=== PATIENT | female | born 1955 | race Asian ===

== ENCOUNTER 2017-04-27 10:59 | Emergency (ER) | payer MEDICAID, OTHER ==
[~2017-04-27] VITALS: Ht 160 cm; Wt 77.3 kg
[~2017-04-27 10:59] MED LIST: ATEN50TA PO; HYDR25TA PO
[2017-04-27] MEDS ORDERED: GUAI5SYR4 PO (11:07)
[2017-04-27 11:50] VITALS: BP 148/88
[2017-04-27 12:24] LABS: APPEARANCE,URINE TURBID (CLEAR); GLUCOSE, URINE (UA) NEGATIVE (NEGATIVE); KETONES,URINE 40 mg/dL (NEGATIVE); LEUKOCYTE ESTERASE ,URINE LARGE (NEGATIVE); OCCULT BLOOD,URINE LARGE (NEGATIVE); PROTEIN,URINE SEE CONFIRM (NEGATIVE)
[2017-04-27 12:35] LABS: SULFOSALICYLIC ACID,URINE 4+ (Negative)
[2017-04-27 12:38] LABS: RBC,URINE Full Field /HPF (0-2); SQUAMOUS EPITHELIAL CELL,UR Few /LPF (None Seen)
== END 2017-04-27 13:02 | disposition home or self-care (01) ==
LOC: EDUNIT# 10:59 → EMS 11:01
DX: N39.0 Urinary tract infection, site not specified (principal); J40 Bronchitis, not specified as acute or chronic; K21.9 Gastro-esophageal reflux disease without esophagitis; I10 Essential (primary) hypertension; F17.210 Nicotine dependence, cigarettes, uncomplicated
CPT/HCPCS: 87086; 99284; 99406

== ENCOUNTER 2017-05-22 12:00 | Emergency (ER) | payer OTHER ==
[~2017-05-22] VITALS: Ht 160 cm; Wt 77.3 kg
[~2017-05-22 12:00] MED LIST changes: +GUAI5SYR4 PO
[2017-05-22 12:17] LABS: GLUCOSE,POINT OF CARE 142 MG/DL (70-110)
[2017-05-22] MEDS ORDERED: OMEP10 PO (12:19)
[2017-05-22 14:23] VITALS: BP 137/79
== END 2017-05-22 14:31 | disposition home or self-care (01) ==
LOC: EMS 12:04
DX: F41.9 Anxiety disorder, unspecified (principal); I10 Essential (primary) hypertension; K21.9 Gastro-esophageal reflux disease without esophagitis; F17.210 Nicotine dependence, cigarettes, uncomplicated
CPT/HCPCS: 71020; 82962; 93005; 99284

== ENCOUNTER 2019-11-27 21:05 | Emergency (ER) | payer OTHER ==
[~2019-11-27] VITALS: Ht 160 cm; Wt 77.3 kg
[~2019-11-27 21:05] MED LIST changes: -GUAI5SYR4 PO; +OMEP10 PO
[2019-11-27] MEDS ORDERED: ATOR20TA86 PO (22:02)
[2019-11-27] MEDS ORDERED: METF-960 PO (22:02)
[2019-11-27] MEDS ORDERED: ALLO100T PO (22:02)
[2019-11-27 22:09] LABS: GLUCOSE,POINT OF CARE 131 MG/DL (70-110)
[2019-11-27 23:34] LABS: RAPID GROUP A STREP NEGATIVE (NEGATIVE)
[2019-11-27 23:44] LABS: INFLUENZA TYPE A NEGATIVE FOR TYPE A (NEGATIVE); INFLUENZA TYPE B NEGATIVE FOR TYPE B (NEGATIVE)
[2019-11-28 00:59] VITALS: BP 135/74
[2019-11-28 01:11] LABS: GLUCOSE,POINT OF CARE 108 MG/DL (70-110)
== END 2019-11-28 01:00 | disposition home or self-care (01) ==
LOC: EMS 21:06
DX: J02.9 Acute pharyngitis, unspecified (principal); R11.0 Nausea; E11.9 Type 2 diabetes mellitus without complications; K21.9 Gastro-esophageal reflux disease without esophagitis; I10 Essential (primary) hypertension; Z79.84 Long term (current) use of oral hypoglycemic drugs
CPT/HCPCS: 87430; 87804

== ENCOUNTER 2022-05-05 06:47 | Emergency (ER) | payer MEDICARE, OTHER ==
[~2022-05-05] VITALS: Ht 160 cm; Wt 72.7 kg
[~2022-05-05 06:47] MED LIST changes: +ALLO-97 PO; +ATEN-72 PO; -ATEN50TA PO; +ATOR20TA86 PO; +HYDR-4870 PO; -HYDR25TA PO; +METF-1211 PO
[2022-05-05] MEDS ORDERED: AMLO-257 PO (07:11)
[2022-05-05] MEDS ORDERED: LOSA-382 PO (07:11)
[2022-05-05] MEDS ORDERED: ACETAMINOPHEN 500 MG TABLET PO ONE (07:45)
[2022-05-05 08:08] LABS: BASOPHILS % (AUTO) 0.4 % (0.0-2.0); EOSINOPHILS % (AUTO) 2.8 % (1.0-6.0); HEMOGLOBIN 13.4 g/dL (12.0-16.0); LYMPHOCYTES # (AUTO) 1.7 K/uL (1.0-4.8); MEAN CORPUSCULAR HEMOGLOBIN 30.7 pg (26.0-34.0); MEAN CORPUSCULAR HGB CONC 34.4 G/dL (31.0-37.0); MEAN CORPUSCULAR VOLUME 89 fL (80-100); MONOCYTES # (AUTO) 0.4 K/uL (0.1-1.0); MONOCYTES % (AUTO) 6.3 % (2.0-9.0); NEUTROPHILS % (AUTO) 63.5 % (40.0-70.0); PLATELET COUNT (AUTO) 283 K/uL (150-450); RED BLOOD CELL COUNT(AUTO) 4.38 MIL/uL (4.00-5.20); RED CELL DISTRIBUTION WIDTH 12.7 % (11.5-14.5)
[2022-05-05 08:16] LABS: ANION GAP 5 mmol/L (8-16); CARBON DIOXIDE 30 mmol/L (22-29); CHLORIDE 106 mmol/L (98-107); CREATININE 0.61 mg/dL (0.60-1.30); GLUCOSE,RANDOM 121 mg/dL (70-110); POTASSIUM 4.1 mmol/L (3.5-5.1); SODIUM SERUM 141 mmol/L (136-145); UREA NITROGEN, BLOOD 9 mg/dL (7-18)
[2022-05-05 08:22] LABS: ALANINE AMINOTRANSFERASE 28 U/L (12-78); ALBUMIN 3.4 g/dL (3.4-5.0); ALKALINE PHOSPHATASE 47 U/L (46-116); ASPARTATE AMINOTRANSFERASE 19 U/L (15-37); BILIRUBIN,TOTAL 1.9 mg/dL (0.1-1.0); GLOMERULAR FILTR. RATE CALC > 60 mL/min (>60); TOTAL PROTEIN, SERUM 7.2 g/dL (6.4-8.2)
[2022-05-05] MEDS ORDERED: DIPH25CA85 PO (08:54)
[2022-05-05] MEDS ORDERED: ACET-66 PO (08:54)
[2022-05-05] MEDS ORDERED: MELA3TAB89 PO (08:54)
[2022-05-05 09:24] VITALS: BP 117/71
== END 2022-05-05 09:35 | disposition home or self-care (01) ==
LOC: EMS 06:48
DX: R07.89 Other chest pain (principal); M25.572 Pain in left ankle and joints of left foot; M25.571 Pain in right ankle and joints of right foot; E11.9 Type 2 diabetes mellitus without complications; I10 Essential (primary) hypertension; R20.2 Paresthesia of skin; Z87.19 Personal history of other diseases of the digestive system; Z98.890 Other specified postprocedural states
CPT/HCPCS: 71045; 80053; 82962; 84484; 85025; 93005; 99283; 36415-L1; 36415-TC